=== PATIENT | male | born 1950 | race Caucasian/White ===

== ENCOUNTER 2024-04-02 11:31 | Emergency (ER) | payer SELFPAY ==
[~2024-04-02] VITALS: Ht 167.6 cm; Wt 68.0 kg
[2024-04-02 11:35] VITALS: O2SAT 100
[2024-04-02 12:04] LABS: BASOPHILS % 0.5 % (0.0-2.0); EOSINOPHILS % 0.4 % (0.0-5.0); HEMATOCRIT. 39.5 % (42.0-52.0); HEMOGLOBIN. 12.9 g/dL (14.0-18.0); LYMPHOCYTES % 14.6 % (20.0-50.0); MEAN CORPUSCULAR HEMOGLOBIN 31.3 pg (28.0-32.0); MEAN CORPUSCULAR HGB CONC 32.7 g/dL (31.0-37.0); MEAN CORPUSCULAR VOLUME 95.7 fL (80.0-94.0); MEAN PLATELET VOLUME 8.4 fl (7.4-10.4); MONOCYTES % 8.1 % (2.0-8.0); NEUTROPHILS % 76.4 % (40.0-76.0); PLATELET 180 x1000/uL (130-400); RED BLOOD CELL COUNT 4.13 mill/uL (4.7-6.1); RED CELL DISTRIBUTION WIDTH 13.7 % (11.6-14.6); WHITE BLOOD COUNT 7.4 x1000/uL (4.5-11.0)
[2024-04-02 12:12] LABS: CHLORIDE 109 mEq/L (98-107); POTASSIUM 3.8 mEq/L (3.5-5.1); SODIUM 140 mEq/L (136-145)
[2024-04-02 12:13] LABS: CALCIUM 9.3 mg/dL (8.7-10.4); CARBON DIOXIDE 28 mEq/L (21-32)
[2024-04-02 12:18] LABS: CREATININE 0.7 mg/dL (0.6-1.3); GLUCOSE 116 mg/dL (70-105); UREA NITROGEN BLOOD 16 mg/dL (9-23)
[2024-04-02] MEDS: OXYMETAZOLINE HCL NASAL SPRAY 15ML BOTHNSTRLS STA (12:52)
[2024-04-02] MEDS: TRANEXAMIC ACID 1,000MG/10ML TP ONE (13:23)
[2024-04-02 15:30] VITALS: BP 149/94; PULSE 80; RESP 16; TEMP 36.61404; O2SAT 100
== END 2024-04-02 15:31 | disposition home or self-care (01) ==
LOC: ER 11:31
DX: R04.0 Epistaxis (principal)
CPT/HCPCS: 30901; 36415; 80048; 85025; 99284

== ENCOUNTER 2024-04-04 18:04 | Emergency (ER) | payer SELFPAY ==
[~2024-04-04] VITALS: Ht 157.5 cm; Wt 68.0 kg
[2024-04-04 18:18] VITALS: TEMP 98.2; O2SAT 100
[2024-04-04] MEDS ORDERED: SULF1TAB48 MT (22:14)
[2024-04-04 22:37] VITALS: BP 133/41; PULSE 63; RESP 16; O2SAT 98
== END 2024-04-04 22:38 | disposition home or self-care (01) ==
LOC: ER 18:04
DX: R04.0 Epistaxis (principal); Z88.0 Allergy status to penicillin
CPT/HCPCS: 30901; 99284